=== PATIENT | male | born 2000 | race Hispanic/Latino ===

== ENCOUNTER 2021-03-20 00:35 | Emergency (ER) | payer SELFPAY ==
[~2021-03-20] VITALS: Ht 165.1 cm; Wt 88.5 kg
[2021-03-20] MEDS ORDERED: ZOFRAN4 MG SL (00:38)
[2021-03-20] MEDS ORDERED: ONDANSETRON HCL 4 MG ORAL DISINTEGRATING TAB PO ONE (00:45)
[2021-03-20] MEDS ORDERED: ONDANSETRON HCL 4 MG ORAL DISINTEGRATING TAB ONE (00:49)
== END 2021-03-20 00:50 | disposition home or self-care (01) ==
LOC: ER 00:40
DX: U07.1 COVID-19 (principal)
CPT/HCPCS: 99282; Q0162